=== PATIENT | female | born 1955 | race Caucasian/White ===

== ENCOUNTER → 2016-05-29 | Outpatient (CLI) | payer BC | LOC: CIMAGING 11:58 | PROVIDERS: ATTEND Family Medicine | DX: R05 Cough (principal); F17.210 Nicotine dependence, cigarettes, uncomplicated | CPT/HCPCS: 71020-PO ==

== ENCOUNTER → 2016-07-10 | Outpatient (CLI) | payer BC | LOC: CIMAGING 11:51 | PROVIDERS: ATTEND Physician Assistant Medical | DX: J44.9 Chronic obstructive pulmonary disease, unspecified (principal); Z87.891 Personal history of nicotine dependence | CPT/HCPCS: 71020-PO ==